=== PATIENT | female | born 1950 | race Caucasian/White ===

== ENCOUNTER → 2017-10-27 | Outpatient (CLI) | payer MEDICARE, MEDICAID ==
--- NOTE | 2017-10-27 11:34 | Diagnostic Imaging Report ---
INDICATION: Hypertension. TECHNIQUE: Bilateral renal sonography was performed in the routine fashion including attempted Doppler. FINDINGS: The right kidney measures 9.5 x 5.0 x 5.5 cm. The left kidney measures 8.0 x 3.9 x 4.6 cm. Both kidneys show no hydronephrosis or mass. Visualization is difficult secondary to body habitus. Renal artery Doppler was attempted but was nondiagnostic on the right side and in the proximal portion of the left renal artery. There are normal velocities and waveforms seen in the distal portion of the left renal artery. IMPRESSION: No hydronephrosis or renal mass. Renal artery Doppler was attempted but was limited secondary to body habitus and poor visualization. Dictated by: Dictated on workstation # [id number]
== END ==
LOC: RAD 09:24
PROVIDERS: ATTEND Internal Medicine Nephrology
DX: I12.9 Hypertensive chronic kidney disease with stage 1 through stage 4 chronic kidney disease, or unspecified chronic kidney disease (principal); N18.4 Chronic kidney disease, stage 4 (severe); E79.0 Hyperuricemia without signs of inflammatory arthritis and tophaceous disease
CPT/HCPCS: 93975

== ENCOUNTER → 2017-11-19 | Outpatient (CLI) | payer MEDICARE, MEDICAID ==
[~2017-11-19] MED LIST: CATHETER FLUSH 10 ML SYR IV PRN; REGADENOSON 0.4 MG/5 ML SYR (LEXISCAN) IV ONE
[2017-11-19 09:55] VITALS: BP 186/113
[2017-11-19 10:18] VITALS: BP 175/86
[2017-11-19 13:35] VITALS: BP 186/113
--- NOTE | 2017-11-19 13:35 | Cardiology Stress Test Report ---
Stress Test Report Type of NM Stress Test: Test Type: LEXISCAN 0.4MG/5ML Date of Procedure/Referring: Date of Procedure: Nov 19, 2017 PCP Whit Mccord MD Admitting Physician Wang Carter DO Indications: shortness of breath Baseline Heart Rate: 67 Baseline Blood Pressure: Blood Pressure Systolic: 186 Blood Pressure Diastolic: 113 Baseline EKG: Baseline EKG: Sinus rhythm Summary: the patient was brought to the stress lab after informed consent was taken. Lexiscan stress test was performed according to the protocol. 0.4 mg of IV Lexiscan was given. Low-grade exercise was performed. Baseline EKG showed sinus rhythm at 67 BPM. Blood pressure 186/113 mmHg. Maximum heart rate 88 BPM and blood pressure 205/82 mmHg. Patient did not have any chest pain, EKG changes or arrhythmias during the stress test. 10.36 mCi of Myoview was given for rest imaging and 28.9 mCi of Myoview was given for stress imaging. Transient ischemic dilatation score 0.98, ejection fraction 79 percent with no wall motion abnormalities. Normal rest and stress perfusion imaging. Conclusion: normal pharmacological stress test. Normal LV function with no wall motion abnormalities. Normal myocardial perfusion imaging during stress and rest. Whit MCCORD MD Nov 19, 2017 1:35 pm
== END ==
LOC: CARD 07:38
PROVIDERS: ATTEND Internal Medicine Interventional Cardiology
DX: R06.02 Shortness of breath (principal); I12.9 Hypertensive chronic kidney disease with stage 1 through stage 4 chronic kidney disease, or unspecified chronic kidney disease; N18.3 Chronic kidney disease, stage 3 (moderate); E11.22 Type 2 diabetes mellitus with diabetic chronic kidney disease
CPT/HCPCS: 78452; 93017

== ENCOUNTER → 2017-12-04 | Outpatient (CLI) | payer MEDICARE, MEDICAID | LOC: CARD 13:34 | PROVIDERS: ATTEND Internal Medicine Interventional Cardiology | DX: E11.9 Type 2 diabetes mellitus without complications (principal); I12.9 Hypertensive chronic kidney disease with stage 1 through stage 4 chronic kidney disease, or unspecified chronic kidney disease; N18.3 Chronic kidney disease, stage 3 (moderate); R06.02 Shortness of breath | CPT/HCPCS: 93306 ==

== ENCOUNTER → 2022-01-23 | Outpatient (CLI) | payer MEDICARE, MEDICAID | LOC: CARD 12:00 | PROVIDERS: ATTEND Physician Assistant | DX: I11.9 Hypertensive heart disease without heart failure (principal) | CPT/HCPCS: 93306 ==